=== PATIENT | female | born 1980 | race Caucasian/White ===

== ENCOUNTER 2022-08-03 16:58 | Inpatient (IN) | payer OTHER ==
[2022-08-03 17:15] VITALS: BMI 21.1
[2022-08-03 18:23] LABS: BASO % 0.6 % (0-2.0); EOS % 1.2 % (0-4.5); HEMATOCRIT 38.4 % (32.4-45.2); HEMOGLOBIN 12.8 GM/dL (10.7-15.3); LYMPH % 20.5 % (8-40); MCH 28.1 pg (25.7-33.7); MCHC 33.2 g/dl (32.0-36.0); MEAN CELL VOLUME 84.8 fl (80-96); MEAN PLT VOLUME 9.6 fl (7.5-11.1); MONO % 7.9 % (3.8-10.2); NEUT % 69.8 % (42.8-82.8); PLATELET COUNT 244 10^3/uL (134-434); RBC 4.53 M/mm3 (3.60-5.2); RDW 13.1 % (11.6-15.6); WHITE BLOOD COUNT 6.5 K/mm3 (4.0-10.0)
[2022-08-03 18:41] LABS: INR 1.15 (0.83-1.09); PROTHROMBIN TIME (PATIENT) 13.2 SEC (9.7-13.0)
[2022-08-03 18:44] LABS: ACTIVATED PTT 33.5 SECONDS (25.2-36.5)
[2022-08-03 18:48] LABS: ALBUMIN 3.8 g/dl (3.4-5.0); BLOOD UREA NITROGEN 13.4 mg/dL (7-18); CALCIUM 8.9 mg/dL (8.5-10.1)
[2022-08-03 18:51] LABS: CREATININE 0.9 mg/dL (0.55-1.3)
[2022-08-03 18:53] LABS: BILIRUBIN,TOTAL 0.5 mg/dL (0.2-1); TOT PROT 6.9 g/dl (6.4-8.2)
[2022-08-04 10:12] LABS: BASO % 0.7 % (0-2.0); EOS % 1.6 % (0-4.5); HEMATOCRIT 36.5 % (32.4-45.2); HEMOGLOBIN 12.2 GM/dL (10.7-15.3); LYMPH % 28.6 % (8-40); MCH 28.4 pg (25.7-33.7); MCHC 33.5 g/dl (32.0-36.0); MEAN CELL VOLUME 84.8 fl (80-96); MEAN PLT VOLUME 9.8 fl (7.5-11.1); NEUT % 60.1 % (42.8-82.8); PLATELET COUNT 219 10^3/uL (134-434); RDW 12.9 % (11.6-15.6); WHITE BLOOD COUNT 4.8 K/mm3 (4.0-10.0)
[2022-08-04 10:52] LABS: CALCIUM 8.7 mg/dL (8.5-10.1)
[2022-08-04 10:53] LABS: ALBUMIN 3.4 g/dl (3.4-5.0); BLOOD UREA NITROGEN 10.2 mg/dL (7-18)
[2022-08-04 10:57] LABS: CREATININE 0.7 mg/dL (0.55-1.3)
[2022-08-04 10:58] LABS: BILIRUBIN,TOTAL 1.5 mg/dL (0.2-1); TOT PROT 6.2 g/dl (6.4-8.2)
[2022-08-04] MEDS: POLYETHYLENE GLYCOL (HEALTHYLAX) 3350 17 GM PACKET PO SCH ×2 (11:13→22:06)
[2022-08-04] MEDS: DEXTROSE 5%-0.45% SALINE 1,000 ML IV SCH (11:20)
[2022-08-04] MEDS ORDERED: PEG 3350/NA SULF BICARB CL/KCL 4000 ML SOLN.RECON PO ONE (11:38)
[2022-08-04] MEDS: NEOMYCIN SO4 500 MG TABLET PO SCH ×3 (14:13→22:04)
[2022-08-04] MEDS: metroNIDAZOLE 500 MG TABLET PO SCH ×3 (14:14→22:05)
[2022-08-04] MEDS ORDERED: ACETAMINOPHEN 325 MG TABLET (FP) PO PRN (17:33)
[2022-08-04] MEDS ORDERED: HEPARIN NA (PORCINE) 5,000 UNITS/ML 1ML VIAL SQ SCH (22:00)
[2022-08-05] MEDS ORDERED: ALVIMOPAN 12 MG CAP PO ONE (06:00)
[2022-08-05] MEDS: DEXTROSE 5%-0.45% SALINE 1,000 ML IV SCH (06:40)
[2022-08-05] MEDS ORDERED: FENTANYL CITRATE/PF 50 MCG/ML VIAL ONE ×5 (07:29→15:13)
[2022-08-05] MEDS ORDERED: PROPOFOL 20 ML ONE ×2 (07:29→10:01)
[2022-08-05] MEDS ORDERED: ROCURONIUM BROMIDE 50 MG/5 ML SYRINGE ONE ×3 (07:29→12:32)
[2022-08-05] MEDS ORDERED: MIDAZOLAM HCL 2 MG/2 ML SINGLE DOSE VIAL ONE ×2 (07:33→08:15)
[2022-08-05] MEDS ORDERED: BUPIVACAINE LIPOSOME/PF (EXPAREL) 266 MG/20 ML VIAL ONE (08:07)
[2022-08-05] MEDS ORDERED: BUPIVACAINE HCL/PF 0.25% (2.5MG/ML) 10 ML VIAL ONE (08:07)
[2022-08-05] MEDS: POLYETHYLENE GLYCOL (HEALTHYLAX) 3350 17 GM PACKET PO SCH (09:04)
[2022-08-05] MEDS ORDERED: ERTAPENEM SODIUM 1 GM VIAL IVPB ONE (09:20)
[2022-08-05] MEDS ORDERED: ONDANSETRON 4 MG/2 ML VIAL ONE ×3 (10:01→15:53)
[2022-08-05] MEDS ORDERED: INDOCYANINE GREEN 25 MG/10 ML VIAL IVPUSH ONE ×2 (13:15)
[2022-08-05] MEDS ORDERED: NEOSTIGMINE METHYLSULFATE 0.5 MG/ML - 10 ML MDV ONE (14:30)
[2022-08-05] MEDS ORDERED: GLYCOPYRROLATE 0.2 MG/1 ML VIAL ONE ×2 (14:30→14:36)
[2022-08-05] MEDS ORDERED: ONDANSETRON 4 MG/2 ML VIAL IVPUSH PRN ×2 (15:20→15:33)
[2022-08-05] MEDS ORDERED: oxyCODONE HCL 5 MG TABLET PO PRN ×5 (15:20→15:36)
[2022-08-05] MEDS ORDERED: FENTANYL CITRATE/PF 50 MCG/ML VIAL IVPUSH PRN (15:20)
[2022-08-05] MEDS ORDERED: LACTATED RINGERS SOLUTION 1,000 ML IV SCH ×2 (15:30→15:31)
[2022-08-05] MEDS: LACTATED RINGERS SOLUTION 1,000 ML IV SCH ×2 (16:16→17:14)
[2022-08-05] MEDS ORDERED: ARTIFICIAL TEARS (POLYVINYL ALCOHOL) OPTH DROPS OU PRN (19:01)
[2022-08-05] MEDS ORDERED: ALPRAZolam 0.25 MG TABLET PO PRN (19:04)
[2022-08-05] MEDS: ACETAMINOPHEN 1000 MG/100 ML BAG IVPB SCH (20:56)
[2022-08-05] MEDS: LORazepam 0.5 MG TABLET PO ONE ×2 (20:57→21:03)
[2022-08-05] MEDS ORDERED: POLYETHYLENE GLYCOL (HEALTHYLAX) 3350 17 GM PACKET PO SCH (22:00)
[2022-08-05] MEDS: HEPARIN NA (PORCINE) 5,000 UNITS/ML 1ML VIAL SQ SCH (22:42)
[2022-08-06] MEDS: ACETAMINOPHEN 1000 MG/100 ML BAG IVPB SCH ×3 (01:16→13:40)
[2022-08-06] MEDS: LACTATED RINGERS SOLUTION 1,000 ML IV SCH (06:37)
[2022-08-06] MEDS ORDERED: LEVOTHYROXINE NA 50 MCG TABLET (FP) PO SCH ×3 (08:20→13:58)
[2022-08-06] MEDS ORDERED: ALVIMOPAN 12 MG CAP PO SCH ×3 (10:00)
[2022-08-06] MEDS: HEPARIN NA (PORCINE) 5,000 UNITS/ML 1ML VIAL SQ SCH ×2 (10:25→22:28)
[2022-08-06 10:53] LABS: BASO % 0.2 % (0-2.0); EOS % 0.3 % (0-4.5); HEMATOCRIT 29.8 % (32.4-45.2); HEMOGLOBIN 9.9 GM/dL (10.7-15.3); LYMPH % 21.7 % (8-40); MCH 28.3 pg (25.7-33.7); MCHC 33.2 g/dl (32.0-36.0); MEAN CELL VOLUME 85.2 fl (80-96); MEAN PLT VOLUME 9.2 fl (7.5-11.1); MONO % 8.1 % (3.8-10.2); NEUT % 69.7 % (42.8-82.8); PLATELET COUNT 185 10^3/uL (134-434); RDW 12.7 % (11.6-15.6); WHITE BLOOD COUNT 6.2 K/mm3 (4.0-10.0)
[2022-08-06 11:28] LABS: CALCIUM 8.2 mg/dL (8.5-10.1)
[2022-08-06 11:29] LABS: BLOOD UREA NITROGEN 5.8 mg/dL (7-18); MAGNESIUM 1.6 mg/dL (1.8-2.4)
[2022-08-06 11:32] LABS: CREATININE 0.5 mg/dL (0.55-1.3)
[2022-08-06 11:34] LABS: BILIRUBIN,TOTAL 0.6 mg/dL (0.2-1); TOT PROT 4.8 g/dl (6.4-8.2)
[2022-08-06 11:37] LABS: ALBUMIN 2.7 g/dl (3.4-5.0)
[2022-08-06] MEDS ORDERED: traMADol HCL 50 MG TABLET PO ONE (15:45)
[2022-08-06] MEDS ORDERED: IRON SUCROSE INJECTION 200 MG in SODIUM CHLORIDE 90 ML IVPB ONE (16:08)
[2022-08-06 18:27] LABS: BASO % 0.4 % (0-2.0); EOS % 0.3 % (0-4.5); HEMATOCRIT 36.3 % (32.4-45.2); HEMOGLOBIN 11.9 GM/dL (10.7-15.3); LYMPH % 17.1 % (8-40); MCH 28.2 pg (25.7-33.7); MCHC 32.8 g/dl (32.0-36.0); MEAN CELL VOLUME 86.1 fl (80-96); MEAN PLT VOLUME 9.5 fl (7.5-11.1); NEUT % 76.2 % (42.8-82.8); PLATELET COUNT 190 10^3/uL (134-434); RBC 4.21 M/mm3 (3.60-5.2); WHITE BLOOD COUNT 7.7 K/mm3 (4.0-10.0)
[2022-08-06] MEDS: ACETAMINOPHEN 500 MG TABLET (FP) PO SCH (22:28)
[2022-08-07] MEDS: ACETAMINOPHEN 500 MG TABLET (FP) PO SCH ×2 (04:00→09:56)
[2022-08-07 06:54] VITALS: RESP 20; TEMP 99.1
[2022-08-07 09:00] VITALS: BP 132/84; PULSE 82
[2022-08-07] MEDS: HEPARIN NA (PORCINE) 5,000 UNITS/ML 1ML VIAL SQ SCH (09:56)
[2022-08-07] MEDS ORDERED: SIMETHICONE 80 MG TAB.CHEW (FP) PO SCH (10:00)
[2022-08-07] MEDS ORDERED: PANTOPRAZOLE 40 MG TABLET PO SCH (10:00)
[2022-08-07 10:21] LABS: BASO % 0.3 % (0-2.0); EOS % 0.7 % (0-4.5); HEMATOCRIT 37.2 % (32.4-45.2); HEMOGLOBIN 12.1 GM/dL (10.7-15.3); MCHC 32.4 g/dl (32.0-36.0); MEAN CELL VOLUME 86.7 fl (80-96); MONO % 8.6 % (3.8-10.2); NEUT % 66.4 % (42.8-82.8); PLATELET COUNT 213 10^3/uL (134-434); WHITE BLOOD COUNT 6.1 K/mm3 (4.0-10.0)
[2022-08-07] MEDS ORDERED: MAGNESIUM OXIDE 400 MG TABLET (FP) PO ONE (10:24)
== END 2022-08-07 14:21 | disposition home or self-care (01) | DRG 221 ==
LOC: JER 16:58 → JERBED 21:40 → J8W 08-04 09:36
PROVIDERS: ADMIT Internal Medicine; ATTEND Family Medicine
PROC: 8E0W3CZ Robotic Assisted Procedure of Trunk Region, Percutaneous Approach (ICD-10-PCS; 2022-08-05)
PROC: 0DTN4ZZ Resection of Sigmoid Colon, Percutaneous Endoscopic Approach (ICD-10-PCS; principal; 2022-08-05 08:00)
DX: C18.7 Malignant neoplasm of sigmoid colon (principal); E03.9 Hypothyroidism, unspecified; K63.89 Other specified diseases of intestine; K56.609 Unspecified intestinal obstruction, unspecified as to partial versus complete obstruction
CPT/HCPCS: 0241U-QW; 36415; 71045-TC-FY; 71250-TC; 74177-TC; 80053; 82378; 82728; 83540; 83550; 83735; 84443; 84703; 85025; 85610; 85730; 86850; 86900; 86901; 88305-TC; 88307-TC; 88309-TC; 93005; 93010; 94010; 94760; 99285-25; J1644; J1756; Q9967

== ENCOUNTER 2023-03-11 22:54 | Emergency (ER) | payer OTHER ==
[2023-03-11 23:08] VITALS: BP 134/87; PULSE 67; RESP 16; TEMP 97.6
[2023-03-12] MEDS ORDERED: LIDOCAINE 5% TOPICAL PATCH TP ONE (00:02)
[2023-03-12] MEDS ORDERED: LIDOCAINE 5% TOPICAL PATCH ONE (00:21)
[2023-03-12] MEDS ORDERED: LIDOCAINE PATCH REMOVAL MC SCH (22:00)
== END 2023-03-12 02:06 | disposition home or self-care (01) ==
LOC: JER 22:54
DX: M79.601 Pain in right arm (principal)
CPT/HCPCS: 73030-TC-RT-FY; 73060-TC-RT-FY; 93005; 93010; 99283-25